=== PATIENT | female | born 1975 | race Hispanic/Latino ===

== ENCOUNTER → 2024-05-22 | Day surgery (SDC) | payer OTHER ==
[~2024-05-22] MED LIST: ACETAMINOPHEN 500 MG; AUGMENTIN 500 MG; BENTYL10 MG PO; BIOTIN1 MG PO; BONE ESSENT166.75 MG PO; FENTANYL CITRATE/PF 100MCG/2 ML INJ ONE; HYOSCYAMINE SULFATE 0.5 MG/ML INJ ONE; IBUPROFEN600 MG PO; MULTI-VITAMIN1 EACH PO; NAPROXEN500 MG PO; OMEPRAZOLE40 MG PO; ONDANSETRON HCL 4 MG ORAL DISINTEGRATING TAB ONE; PREVACID30 MG PO; PROPOFOL IV EMULSION 50 ML IV ONE; VITAMIN D3 COM1 EACH PO
[2024-05-22] MEDS: LACTATED RINGER'S 1,000 ML ONE (08:09)
[2024-05-22 09:21] VITALS: TEMP 97.7
[2024-05-22 10:05] VITALS: BP 138/98; PULSE 74; RESP 16; O2SAT 99
[2024-05-22] MEDS: ONDANSETRON HCL 4 MG ORAL DISINTEGRATING TAB PO ONE (10:11)
== END | disposition home or self-care (01) ==
LOC: OR 07:04
PROVIDERS: ATTEND Internal Medicine Gastroenterology
DX: K21.9 Gastro-esophageal reflux disease without esophagitis (principal); K29.70 Gastritis, unspecified, without bleeding; K20.90 Esophagitis, unspecified without bleeding; K57.30 Diverticulosis of large intestine without perforation or abscess without bleeding; K64.8 Other hemorrhoids; M54.9 Dorsalgia, unspecified; Z88.6 Allergy status to analgesic agent; Z79.1 Long term (current) use of non-steroidal anti-inflammatories (NSAID)
CPT/HCPCS: 43239; 45378; J1980; J2470; J2704; J3010; J7121; Q0162